=== PATIENT | male | born 1940 | race Caucasian/White ===

== ENCOUNTER 2017-04-12 08:44 | Emergency (ER) | payer OTHER ==
[~2017-04-12] VITALS: Ht 188 cm; Wt 116.0 kg
[~2017-04-12 08:44] MED LIST: ACARBOSE25 MG PO; COUMADIN,JANTOVE5 MG PO; DIGITEK125 MCG PO; FORMOTEROL FUM0.5 GM MC; GLUCOTROL10 MG PO; HYDROCHLOROTH12.5 M1 PO; HYTRIN2 MG PO; LANOXIN,DIGI0.125 MG PO; LISINOPRIL40 MG PO; METOPROLOL SUC100 MG PO; NORVASC5 MG PO; OMEPRAZOLE20 MG PO; PRILOSEC20 MG PO; PRINIVIL20 MG PO; SIMVASTATIN10 MG PO; TERAZOSIN HCL5 MG PO; TOPROL XL100 MG PO; WARFARIN SODIU7.5 MG PO; WARFARIN SODIUM5 MG PO; ZOCOR10 M1 GT
[2017-04-12 09:27] LABS: EOSINOPHIL (%) 2.2 % (0-5); EOSINOPHIL COUNT 0.2 K/uL (0-0.3); HEMATOCRIT 33.8 % (38.0-50.0); IMMATURE GRANULOCYTE (%) 0.7 % (0.0-0.7); IMMATURE GRANULOCYTE COUNT 0.1 K/uL; INSTRUMENT ABS NEUTROPHIL CT 6.1 K/uL; LYMPHOCYTE COUNT 1.3 K/uL (1.0-2.8); MCH 31.3 PG (29.0-34.0); MCV 91.8 FL (86-99); MEAN PLAT.VOLUME 10.5 uM^3 (9.0-12.4); MONOCYTE (%) 9.6 % (3-12); MONOCYTE COUNT 0.8 K/uL (0-0.8); NEUTROPHIL (%) 71.5 % (45-76); NEUTROPHIL COUNT 6.1 K/uL (1.8-6.4); PLATELET COUNT 141 K/uL (156-360); RBC DIS.WIDTH-CV 13.5 % (11.8-14.6); RBC DIS.WIDTH-SD 45.6 % (39-53); RED BLOOD COUNT 3.68 M/uL (4.00-5.50); WHITE BLOOD COUNT 8.5 K/uL (4.1-10.2)
[2017-04-12 09:33] LABS: INTER. NORMALIZED RATIO 3.6; PROTHROMBIN TIME 41.9 SEC (10.2-12.9)
[2017-04-12] MEDS ORDERED: AMOXICILLIN500 MG PO (11:05)
[2017-04-12 11:51] VITALS: BP 136/83
== END 2017-04-12 11:52 | disposition home or self-care (01) ==
LOC: EME 08:44
PROVIDERS: Emergency Medicine
PROC: 2Y41X5Z Packing of Nasal Region using Packing Material (ICD-10-PCS; principal; 2017-04-12)
DX: R04.0 Epistaxis (principal); I10 Essential (primary) hypertension; E11.9 Type 2 diabetes mellitus without complications; Z79.84 Long term (current) use of oral hypoglycemic drugs; I48.91 Unspecified atrial fibrillation; Z79.01 Long term (current) use of anticoagulants
CPT/HCPCS: 85025; 85610; 99281; 99284

== ENCOUNTER 2017-04-13 05:23 | Emergency (ER) | payer OTHER ==
[~2017-04-13] VITALS: Ht 188 cm; Wt 115.3 kg
[~2017-04-13 05:23] MED LIST changes: +AMOXICILLIN500 MG PO
[2017-04-13 08:01] VITALS: BP 154/88
== END 2017-04-13 08:03 | disposition home or self-care (01) ==
LOC: EME 05:23
PROC: 2Y41X5Z Packing of Nasal Region using Packing Material (ICD-10-PCS; principal; 2017-04-13)
DX: R04.0 Epistaxis (principal); E11.9 Type 2 diabetes mellitus without complications; I10 Essential (primary) hypertension; Z79.01 Long term (current) use of anticoagulants; Z85.9 Personal history of malignant neoplasm, unspecified; Z88.8 Allergy status to other drugs, medicaments and biological substances
CPT/HCPCS: 99281; 99282